=== PATIENT | male | born 1965 | race Caucasian/White ===

== ENCOUNTER 2024-11-27 19:58 | Emergency (ER) | payer OTHER ==
[~2024-11-27] VITALS: Ht 170.2 cm; Wt 70.0 kg
[2024-11-27 20:02] VITALS: O2SAT 100
[2024-11-27 21:26] LABS: BASOPHILS % 0.7 % (0.0-2.0); EOSINOPHILS % 1.4 % (0.0-5.0); HEMATOCRIT. 45.2 % (42.0-52.0); HEMOGLOBIN. 15.3 g/dL (14.0-18.0); LYMPHOCYTES % 39.8 % (20.0-50.0); MEAN CORPUSCULAR HGB CONC 33.9 g/dL (31.0-37.0); MEAN CORPUSCULAR VOLUME 97.4 fL (80.0-94.0); MEAN PLATELET VOLUME 7.4 fl (7.4-10.4); MONOCYTES % 6.3 % (2.0-8.0); NEUTROPHILS % 51.8 % (40.0-76.0); PLATELET 244 x1000/uL (130-400); RED BLOOD CELL COUNT 4.64 mill/uL (4.7-6.1); RED CELL DISTRIBUTION WIDTH 14.1 % (11.6-14.6)
[2024-11-27 21:34] LABS: CHLORIDE 108 mEq/L (98-107); POTASSIUM 3.5 mEq/L (3.5-5.1); SODIUM 145 mEq/L (136-145)
[2024-11-27 21:35] LABS: CALCIUM 8.3 mg/dL (8.7-10.4); CARBON DIOXIDE 24 mEq/L (21-32)
[2024-11-27 21:40] LABS: GLUCOSE 135 mg/dL (70-105); UREA NITROGEN BLOOD 12 mg/dL (9-23)
[2024-11-27 22:00] LABS: ETHANOL BLOOD 476 mg/dL (<10)
[2024-11-27] MEDS: CHLORDIAZEPOXIDE 25MG CAPSULE PO ONE (22:31)
[2024-11-27 23:50] VITALS: BP 138/72; PULSE 80; RESP 20; TEMP 36.7; O2SAT 95
== END 2024-11-27 23:54 | disposition home or self-care (01) ==
LOC: ER 19:58
DX: S00.83XA Contusion of other part of head, initial encounter (principal); W18.30XA Fall on same level, unspecified, initial encounter; Y93.89 Activity, other specified; Y92.89 Other specified places as the place of occurrence of the external cause; Y99.9 Unspecified external cause status
CPT/HCPCS: 36415; 80048; 80320; 85025; 99291; G0480